=== PATIENT | female | born 1960 | race Caucasian/White ===

== ENCOUNTER 2016-11-18 07:07 | Outpatient (CLI) | payer OTHER ==
[2016-11-18 11:59] LABS: BASOPHILS # (AUTO) 0.1 10^3/uL (0.0-0.1); BASOPHILS % (AUTO) 0.9 %; EOSINOPHILS # (AUTO) 0.2 10^3/uL (0.0-0.7); EOSINOPHILS % (AUTO) 2.9 %; HCT - HEMATOCRIT 42.3 % (37.0-47.0); HGB - HEMOGLOBIN 14.3 g/dL (12.0-16.0); LYMPHOCYTES # (AUTO) 1.7 10^3/uL (1.5-3.5); LYMPHOCYTES % (AUTO) 20.9 %; MEAN CORPUSCULAR HEMOGLOBIN 30.8 pg (27.0-31.0); MEAN CORPUSCULAR HGB CONC 33.8 g/dL (32.0-36.0); MEAN CORPUSCULAR VOLUME 91.2 fL (81.0-99.0); MEAN PLATELET VOLUME 8.8 fL (7.9-10.8); MONOCYTES # (AUTO) 0.6 10^3/uL (0.0-1.0); MONOCYTES % (AUTO) 7.8 %; NEUTROPHILS # (AUTO) 5.6 10^3/uL (1.5-6.6); NEUTROPHILS % (AUTO) 67.5 %; RED BLOOD COUNT 4.64 10^6/uL (4.20-5.40); RED CELL DISTRIBUTION WIDTH 13.5 % (12.0-15.0); UNCORRECTED WHITE BLOOD COUNT 8.3 x10^3/uL; WHITE BLOOD COUNT 8.3 x10^3/uL (4.8-10.8)
[2016-11-18 12:14] LABS: ALBUMIN/GLOBULIN RATIO 1.3 (1.0-2.2); BILIRUBIN,TOTAL 0.5 mg/dL (0.2-1.0); BUN - BLOOD UREA NITROGEN 12 mg/dL (6-20); CARBON DIOXIDE - CO2 23 mmol/L (21-32); CHLORIDE 106 mmol/L (101-111); CHOL/HDL RATIO 2.5 (<4.4); CHOLESTEROL 183 mg/dL; CREATININE 0.7 mg/dL (0.4-1.0); GFR - MDRD 87 (>89); GLUCOSE 80 mg/dL (70-100); HDL CHOLESTEROL 73 mg/dL; LDL/HDL RATIO 1.2 (<4.4); POTASSIUM 3.9 mmol/L (3.5-5.0); SODIUM 140 mmol/L (135-145); TOTAL PROTEIN 7.6 g/dL (6.7-8.2); TRIGLYCERIDES 116 mg/dL; VLDL CHOLESTEROL 23 mg/dL
[2016-11-18 12:44] LABS: THYROID STIMULATING HORMONE 1.07 uIU/mL (0.34-5.60)
== END 2016-11-18 07:08 | disposition home or self-care (01) ==
LOC: LAB.F 07:07
PROVIDERS: ATTEND Physician Assistant
DX: Z00.00 Encounter for general adult medical examination without abnormal findings (principal)
CPT/HCPCS: 36415; 80053; 80061; 84439; 84443; 85025

== ENCOUNTER 2016-12-12 09:50 | Outpatient (CLI) | payer OTHER | END 2016-12-12 09:51 | disposition home or self-care (01) | LOC: LAB.S 09:50 | PROVIDERS: ATTEND Physician Assistant | DX: E55.9 Vitamin D deficiency, unspecified (principal) | CPT/HCPCS: 36415; 82306 ==

== ENCOUNTER 2017-07-17 15:28 | Outpatient (CLI) | payer OTHER | END 2017-07-17 15:29 | disposition home or self-care (01) | LOC: RT.S 15:28 | PROVIDERS: ATTEND Physician Assistant | DX: R03.0 Elevated blood-pressure reading, without diagnosis of hypertension (principal); R00.0 Tachycardia, unspecified | CPT/HCPCS: 93005 ==

== ENCOUNTER 2017-07-21 07:04 | Outpatient (CLI) | payer OTHER ==
[2017-07-21 10:22] LABS: BASOPHILS % (AUTO) 0.7 %; EOSINOPHILS # (AUTO) 0.2 10^3/uL (0.0-0.7); EOSINOPHILS % (AUTO) 2.9 %; HGB - HEMOGLOBIN 14.2 g/dL (12.0-16.0); LYMPHOCYTES % (AUTO) 30.5 %; MEAN CORPUSCULAR HEMOGLOBIN 30.4 pg (27.0-31.0); MEAN CORPUSCULAR HGB CONC 34.2 g/dL (32.0-36.0); MEAN CORPUSCULAR VOLUME 88.7 fL (81.0-99.0); MEAN PLATELET VOLUME 8.4 fL (7.9-10.8); MONOCYTES # (AUTO) 0.8 10^3/uL (0.0-1.0); MONOCYTES % (AUTO) 12.2 %; NEUTROPHILS # (AUTO) 3.5 10^3/uL (1.5-6.6); NEUTROPHILS % (AUTO) 53.7 %; PLT - PLATELET COUNT 383 10^3/uL (130-450); RED BLOOD COUNT 4.66 10^6/uL (4.20-5.40); RED CELL DISTRIBUTION WIDTH 13.2 % (12.0-15.0); WHITE BLOOD COUNT 6.6 x10^3/uL (4.8-10.8)
[2017-07-21 10:35] LABS: BUN - BLOOD UREA NITROGEN 11 mg/dL (6-20); CALCIUM 8.6 mg/dL (8.5-10.3); CARBON DIOXIDE - CO2 22 mmol/L (21-32); CHLORIDE 104 mmol/L (101-111); CHOL/HDL RATIO 3.7 (<4.4); CHOLESTEROL 235 mg/dL; CREATININE 0.7 mg/dL (0.4-1.0); GFR - MDRD 87 (>89); GLUCOSE 80 mg/dL (70-100); HDL CHOLESTEROL 63 mg/dL; LDL CHOLESTEROL,CALCULATED 147 mg/dL; LDL/HDL RATIO 2.3 (<4.4); SODIUM 136 mmol/L (135-145); VLDL CHOLESTEROL 25 mg/dL
[2017-07-21 10:47] LABS: THYROID STIMULATING HORMONE 0.7 uIU/mL (0.34-5.60)
[2017-07-21 10:49] LABS: FREE T4 (FREE THYROXINE) 0.91 ng/dL (0.58-1.64)
== END 2017-07-21 07:05 | disposition home or self-care (01) ==
LOC: LAB.F 07:04
PROVIDERS: ATTEND Physician Assistant
DX: R03.0 Elevated blood-pressure reading, without diagnosis of hypertension (principal)
CPT/HCPCS: 36415; 80048; 80061; 82306; 83721; 84439; 84443; 85025

== ENCOUNTER 2017-12-04 07:15 | Outpatient (CLI) | payer OTHER ==
[2017-12-04 11:20] LABS: BILIRUBIN,URINE NEGATIVE (NEGATIVE); GLUCOSE, URINE (UA) NEGATIVE (NEGATIVE); KETONES,URINE (UA) NEGATIVE (NEGATIVE); LEUKOCYTE ESTERASE, URINE NEGATIVE (NEGATIVE); NITRITE,URINE NEGATIVE (NEGATIVE); OCCULT BLOOD,URINE NEGATIVE (NEGATIVE); PROTEIN,URINE NEGATIVE (NEGATIVE); UROBILINOGEN,URINE 0.2 (NORMAL) E.U./dL (NORMAL)
[2017-12-04 11:25] LABS: BASOPHILS # (AUTO) 0.1 10^3/uL (0.0-0.1); BASOPHILS % (AUTO) 0.7 %; EOSINOPHILS # (AUTO) 0.2 10^3/uL (0.0-0.7); EOSINOPHILS % (AUTO) 2.6 %; LYMPHOCYTES # (AUTO) 1.6 10^3/uL (1.5-3.5); LYMPHOCYTES % (AUTO) 19.9 %; MEAN CORPUSCULAR HEMOGLOBIN 31.6 pg (27.0-31.0); MEAN CORPUSCULAR HGB CONC 33.7 g/dL (32.0-36.0); MEAN CORPUSCULAR VOLUME 93.7 fL (81.0-99.0); MEAN PLATELET VOLUME 9.1 fL (7.9-10.8); MONOCYTES # (AUTO) 0.6 10^3/uL (0.0-1.0); MONOCYTES % (AUTO) 8.2 %; NEUTROPHILS # (AUTO) 5.4 10^3/uL (1.5-6.6); NEUTROPHILS % (AUTO) 68.6 %; PLT - PLATELET COUNT 267 10^3/uL (130-450); RED BLOOD COUNT 4.43 10^6/uL (4.20-5.40); RED CELL DISTRIBUTION WIDTH 13.7 % (12.0-15.0); WHITE BLOOD COUNT 7.8 x10^3/uL (4.8-10.8)
[2017-12-04 11:31] LABS: CLARITY,URINE HAZY (CLEAR)
[2017-12-04 11:39] LABS: ALBUMIN 3.6 g/dL (3.2-5.5); ALBUMIN/GLOBULIN RATIO 1.1 (1.0-2.2); ALKALINE PHOSPHATASE 54 IU/L (42-121); ALT ALANINE AMINOTRANSFERASE 21 IU/L (10-60); AST ASPARTATE AMINOTRANSFERASE 27 IU/L (10-42); BILIRUBIN,TOTAL 0.8 mg/dL (0.2-1.0); BUN - BLOOD UREA NITROGEN 13 mg/dL (6-20); CALCIUM 8.8 mg/dL (8.5-10.3); CARBON DIOXIDE - CO2 22 mmol/L (21-32); CHLORIDE 105 mmol/L (101-111); CHOL/HDL RATIO 3.4 (<4.4); CHOLESTEROL 192 mg/dL; CREATININE 0.8 mg/dL (0.4-1.0); GFR - MDRD 74 (>89); GLUCOSE 86 mg/dL (70-100); HDL CHOLESTEROL 57 mg/dL; LDL CHOLESTEROL,CALCULATED 102 mg/dL; LDL/HDL RATIO 1.8 (<4.4); SODIUM 136 mmol/L (135-145); TOTAL PROTEIN 6.9 g/dL (6.7-8.2); VLDL CHOLESTEROL 33 mg/dL
[2017-12-04 11:45] LABS: THYROID STIMULATING HORMONE 1.46 uIU/mL (0.34-5.60)
[2017-12-04 11:47] LABS: FREE T4 (FREE THYROXINE) 0.75 ng/dL (0.58-1.64)
== END 2017-12-04 07:16 | disposition home or self-care (01) ==
LOC: LAB.F 07:15
PROVIDERS: ATTEND Physician Assistant
DX: Z00.00 Encounter for general adult medical examination without abnormal findings (principal); R94.4 Abnormal results of kidney function studies; E07.9 Disorder of thyroid, unspecified; E78.5 Hyperlipidemia, unspecified; R03.0 Elevated blood-pressure reading, without diagnosis of hypertension
CPT/HCPCS: 36415; 80053; 80061; 81003; 83721; 84439; 84443; 85025

== ENCOUNTER 2018-06-04 20:57 | Emergency (ER) | payer OTHER ==
[2018-06-04] MEDS ORDERED: IOVERSOL 320 100 ML VIAL IVP ONE ×3 (20:58→22:29)
[2018-06-04 21:04] VITALS: BP 142/90
[2018-06-04] MEDS ORDERED: ONDANSETRON 4 MG/2 ML VIAL IVP STA (21:06)
[2018-06-04] MEDS ORDERED: SODIUM CHLORIDE 0.9% 1,000 ML IV STA (21:06)
--- NOTE | 2018-06-04 21:21 | ED Physician Documentation ---
PD HPI ABD PAIN - Stated complaint Stated Complaint: ABDOMINAL PX - Chief complaint Chief Complaint: Abd Pain - History obtained from History obtained from: Patient - History of Present Illness Timing - onset: How many days ago (2) Timing - duration: Days (2) Timing - details: Gradual onset Pain level max: 3 Pain level now: 3 Severity Comments: mild Quality: Cramping Location: RLQ, LLQ Radiation: No: Chest, , Lower back, Left flank, Right flank Improved by: Laying still, BM. No: Eating Worsened by: Eating Associated symptoms: Nausea, Diarrhea. No: Fever, Vomiting Review of Systems Constitutional: reports: Reviewed and negative Eyes: reports: Reviewed and negative Ears: reports: Reviewed and negative Nose: reports: Reviewed and negative Throat: reports: Reviewed and negative Cardiac: reports: Reviewed and negative Respiratory: reports: Reviewed and negative GI: reports: Reviewed and negative : reports: Reviewed and negative Skin: reports: Reviewed and negative Musculoskeletal: reports: Reviewed and negative Neurologic: reports: Reviewed and negative Psychiatric: reports: Reviewed and negative Endocrine: reports: Reviewed and negative Immunocompromised: reports: Reviewed and negative PD PAST MEDICAL HISTORY - Past Medical History Cardiovascular: None Respiratory: None Endocrine/Autoimmune: None GI: None : None HEENT: None Psych: None Musculoskeletal: None Derm: None Other Past Medical History: Reviewed and not pertinent - Past Surgical History Ortho: Arthroscopic surgery /RINK RAT: Mastectomy, Other - Present Medications Home Medications: Ambulatory Orders Medication Instructions Recorded Confirmed valACYclovir [Valtrex] 500 mg PO BID PRN 11/06/12 03/19/18 Norethindrone-Ethinyl Estrad 1 each PO DAILY 01/09/13 03/19/18 [Cyclafem] Cholecalciferol (Vitamin D3) 25,000 unit PO Q7D 04/03/13 03/19/18 [Vitamin D-3] Aspirin [Aspir-Low] 81 mg PO DAILY 03/21/16 03/19/18 Lisinopril 10 mg PO DAILY 03/19/18 03/19/18 Ciprofloxacin HCl [Cipro] 500 mg PO BID #20 tablet 06/04/18 Metronidazole [Flagyl] 500 mg PO TID #30 tablet 06/04/18 - Allergies Allergies/Adverse Reactions: Allergies Allergy/AdvReac Type Severity Reaction Status Date / Time No Known Drug Allergies Allergy Verified 01/28/19 21:05 - Living Situation Living Situation: reports: Alone Living Arrangement: reports: At home - Social History Does the pt smoke?: Yes Smoking Status: Former smoker Does the pt drink ETOH?: Yes - Family History Family history: reports: Other (Reviewed and not pertinent) - Immunizations Immunizations are current?: Yes PD ED PE NORMAL - Vitals Vital signs reviewed: Yes - General General: Alert and oriented X 3, No acute distress - HEENT HEENT: PERRL - Neck Neck: Supple, no meningeal sign - Cardiac Cardiac: RRR, No murmur - Respiratory Respiratory: Clear bilaterally - Abdomen Abdomen: Normal bowel sounds, Soft, Non distended, Other (Generalized abdominal tenderness with no guarding or rebound.) - Derm Derm: Warm and dry - Extremities Extremities: No deformity - Neuro Neuro: Alert and oriented X 3 - Psych Psych: Normal mood, Normal affect Results - Vitals Vitals: Vital Signs - 24 hr 06/04/18 20:59 Temperature 36.4 C L Heart Rate 115 H Respiratory 18 Rate Blood Pressure 142/90 H O2 Saturation 97 Oxygen O2 Source Room air - EKG (time done) 2113 Rate: Rate (enter#) (100), Tachy Rhythm: Sinus tachycardia Star: Normal Intervals: Normal MT QRS: Normal Ischemia: Normal ST segments. No: T wave inversion Other comments: Other comments (Left bundle branch block, Negative sgarbossa criteria) - Labs Labs: Laboratory Tests 06/04/18 06/04/18 06/04/18 21:16 21:16 21:16 WBC 18.4 H RBC 4.65 Hgb 14.4 Hct 43.0 MCV 92.5 MCH 30.9 MCHC 33.4 RDW 13.5 Plt Count 299 MPV 8.6 Neut # (Auto) 15.9 H Lymph # (Auto) 1.1 L [place] # (Auto) 1.2 H Eos # (Auto) 0.2 Baso # (Auto) 0.0 Absolute Nucleated RBC 0.02 Nucleated RBC % 0.1 Sodium 135 Potassium 4.2 Chloride 102 Carbon Dioxide 22 Anion Gap 11.0 BUN 26 H Creatinine 1.2 H Estimated GFR (MDRD) 47 L Glucose 101 H Calcium 8.7 Total Bilirubin 0.7 AST 21 ALT 20 Alkaline Phosphatase 55 Troponin I < 0.04 Total Protein 7.3 Albumin 4.2 Globulin 3.1 Albumin/Globulin Ratio 1.4 Lipase 37 - Rads (name of study) CT Abd Pelvis Radiology: Final report received (Enteritis, adrenal gland nodule) PD MEDICAL DECISION MAKING - ED course Complexity details: reviewed results, re-evaluated patient, considered differential, d/w patient ED course: 57-year-old female with abdominal pain and diarrhea. CT scan shows enteritis. Discharged on Cipro Flagyl. Departure - Departure Disposition: Home, Self Care Clinical Impression: Enteritis Condition: Good Instructions: ED Food Poison Or Gastroenteritis Follow-Up: Ros Shrestha ARNP [Primary Care Provider] - Prescriptions: Ciprofloxacin HCl [Cipro] 500 mg PO BID #20 tablet Metronidazole [Flagyl] 500 mg PO TID #30 tablet Comments: Take antibiotics as prescribed. Follow-up with PCP within 24 hours to ensure symptoms are improving. Return with worsening symptoms.
[2018-06-04 21:28] LABS: BASOPHILS % (AUTO) 0.3 %; EOSINOPHILS # (AUTO) 0.2 10^3/uL (0.0-0.7); EOSINOPHILS % (AUTO) 0.9 %; HGB - HEMOGLOBIN 14.4 g/dL (12.0-16.0); LYMPHOCYTES # (AUTO) 1.1 10^3/uL (1.5-3.5); LYMPHOCYTES % (AUTO) 6.1 %; MEAN CORPUSCULAR HEMOGLOBIN 30.9 pg (27.0-31.0); MEAN CORPUSCULAR HGB CONC 33.4 g/dL (32.0-36.0); MEAN CORPUSCULAR VOLUME 92.5 fL (81.0-99.0); MEAN PLATELET VOLUME 8.6 fL (7.9-10.8); MONOCYTES # (AUTO) 1.2 10^3/uL (0.0-1.0); MONOCYTES % (AUTO) 6.3 %; NEUTROPHILS # (AUTO) 15.9 10^3/uL (1.5-6.6); NEUTROPHILS % (AUTO) 86.4 %; PLT - PLATELET COUNT 299 10^3/uL (130-450); RED BLOOD COUNT 4.65 10^6/uL (4.20-5.40); RED CELL DISTRIBUTION WIDTH 13.5 % (12.0-15.0); WHITE BLOOD COUNT 18.4 x10^3/uL (4.8-10.8)
[2018-06-04 21:37] LABS: ALBUMIN 4.2 g/dL (3.2-5.5); ALBUMIN/GLOBULIN RATIO 1.4 (1.0-2.2); BILIRUBIN,TOTAL 0.7 mg/dL (0.2-1.0); CALCIUM 8.7 mg/dL (8.5-10.3); CREATININE 1.2 mg/dL (0.4-1.0); TOTAL PROTEIN 7.3 g/dL (6.7-8.2)
--- NOTE | 2018-06-04 23:04 | CT Report ---
Reason: Pain Procedure Date: 06/04/2018 Accession Number: [id number] / [id number] Procedure: CT - Abdomen/Pelvis W/ CPT Code: FULL RESULT: EXAM: CT ABDOMEN AND PELVIS EXAM DATE: 06/04/2018 10:32 PM. CLINICAL HISTORY: Pain. COMPARISONS: ABDOMEN/PELVIS W/ 03/25/2016 8:50 AM. TECHNIQUE: Routine helical CT imaging was performed through the abdomen and pelvis. IV contrast: 80 mL Optiray 320. Enteric contrast: No. Reconstructions: Coronal and sagittal. In accordance with CT protocol optimization, one or more of the following dose reduction techniques were utilized for this exam: automated exposure control, adjustment of mA and/or KV based on patient size, or use of iterative reconstructive technique. FINDINGS: Lung Bases: Unremarkable. Liver: Normal. No masses. Gallbladder/Bile Ducts: Unremarkable. Spleen: Normal. Pancreas: Normal. Adrenal Glands: There is a 1.5 cm left adrenal gland nodule with an attenuation value of 37 HU. This previously measured 1.3 cm. The right adrenal gland is normal. Kidneys: Normal. No masses or hydronephrosis. Peritoneal Cavity/Bowel: Circumferential mural thickening of the mid to distal small bowel. There is mesenteric edema and mild pelvic ascites. No bowel obstruction. No pneumoperitoneum. There is no evidence of diverticulitis or appendicitis. The appendix is well-visualized and normal. Pelvic Organs: Small uterine fibroids noted. The urinary bladder is unremarkable. Vasculature: No aneurysms or other significant abnormality. Bones: No significant abnormality. Other: None. IMPRESSION: 1. Several thickened mid to distal small bowel loops with mild mesenteric edema and ascites. Findings suggest inflammatory bowel disease versus enteritis. 2. No pneumoperitoneum. 3. Slight interval increase in size of left adrenal gland nodule most likely representing a benign adenoma. RADIA
[2018-06-04] MEDS ORDERED: CIPROFLOXACIN 250 MG TABLET PO STA (23:07)
[2018-06-04] MEDS ORDERED: metroNIDAZOLE 250 MG TABLET PO STA (23:07)
== END 2018-06-04 23:23 | disposition home or self-care (01) ==
LOC: ED 20:57
DX: K52.9 Noninfective gastroenteritis and colitis, unspecified (principal); R00.0 Tachycardia, unspecified; I44.7 Left bundle-branch block, unspecified; Z87.891 Personal history of nicotine dependence
CPT/HCPCS: 36415; 74177; 80053; 83690; 84484; 85025; 93005; 96374; 99283; A9270; Q9967

== ENCOUNTER 2019-04-09 07:14 | Outpatient (CLI) | payer OTHER ==
--- NOTE | 2019-04-09 15:49 | CT Report ---
Reason: RT BREAST CA Procedure Date: 04/09/2019 Accession Number: [id number] / [id number] Procedure: CT - CHEST WO CPT Code: Final Report FULL RESULT: EXAM: CT CHEST EXAM DATE: 04/09/2019 07:26 AM. CLINICAL HISTORY: Right breast cancer. COMPARISONS: CT ABDOMEN/PELVIS CT CHEST ANGIO 02/06/2014. TECHNIQUE: Routine helical CT imaging was performed through the chest. IV contrast: None. Reconstructions: Coronal and sagittal. In accordance with CT protocol optimization, one or more of the following dose reduction techniques were utilized for this exam: automated exposure control, adjustment of mA and/or KV based on patient size, or use of iterative reconstructive technique. FINDINGS: Lungs/Pleura: Minimal basilar atelectasis. No nodules, bronchial thickening, consolidation, or edema. Pulmonary vasculature is normal. No pleural effusion. No pneumothorax. Mediastinum: No adenopathy or masses. The heart and great vessels are normal. Bones: Mildly degenerative changes. No lytic or blastic destructive lesions. Visualized Abdomen: Stable left adrenal low-attenuation nodule. Other: Post surgical changes in the right breast and axilla. Small hiatal hernia. IMPRESSION: No evidence for metastatic disease. RADIA
== END 2019-04-09 07:15 | disposition home or self-care (01) ==
LOC: DI 07:14
PROVIDERS: ATTEND Internal Medicine Hematology & Oncology
DX: C50.911 Malignant neoplasm of unspecified site of right female breast (principal)
CPT/HCPCS: 71250

== ENCOUNTER 2019-11-22 11:43 | Emergency (ER) | payer OTHER ==
--- NOTE | 2019-11-22 12:35 | XRAY Report ---
PROCEDURE: Ankle 3 View RT INDICATIONS: Trauma TECHNIQUE: 3 views of the ankle were acquired. COMPARISON: None FINDINGS: Bones: No fractures or dislocations. Ankle mortise is normally aligned. No suspicious bony lesions . Soft tissues: Mild lateral malleolar soft tissue edema. Achilles tendon appears normal. IMPRESSION: No visualized acute fracture or dislocation. However, occult injury cannot be excluded. Recommend short interval imaging follow-up in 7-10 days as clinically indicated for additional evalua tion. Reviewed by: Gabriela Ramachandran MD on 11/22/2019 12:34 PM PDT Approved by: Gabriela Ramachandran MD on 11/22/2019 12:34 PM PDT Station ID: [id number]
--- NOTE | 2019-11-22 12:51 | ED Physician Documentation ---
PD HPI LOWER EXT INJURY - Stated complaint Stated Complaint: RT ANKLE PX - Chief complaint Chief Complaint: Ext Problem - History obtained from History obtained from: Patient - History of Present Illness PD HPI LOW EXT INJURY LOCATION: Right, Ankle Type of injury: Twist (Twisted walking down the stairs) Where injury occurred: Home Timing - onset: Yesterday Pain level max: 6 Pain level now: 3 Improved by: Rest, Ice, Immobilization Worsened by: Moving, Palpating Associated symptoms: Swelling (Right lateral malleolus). No: Weakness, Tingling Contributing factors: No: Anticoagulated Similar symptoms before: Has not had sx before - Additional information Additional information: 59-year-old female states that she rolled her ankle yesterday at home, increasing pain today. Difficulty walking. Using Tylenol for pain. No head, neck, back pain. No numbness or tingling. 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, Other - Present Medications Home Medications: Ambulatory Orders Medication Instructions Recorded Confirmed valACYclovir [Valtrex] 500 mg PO BID PRN 11/06/12 04/29/19 Cholecalciferol (Vitamin D3) 25,000 unit PO Q7D 04/03/13 04/29/19 [Vitamin D-3] Aspirin [Aspir-Low] 81 mg PO DAILY 03/21/16 04/29/19 Ciprofloxacin HCl [Cipro] 500 mg PO BID #20 tablet 06/04/18 04/29/19 metroNIDAZOLE [Flagyl] 500 mg PO TID #30 tablet 06/04/18 04/29/19 Levonorgestrel-Ethin Estradiol 1 tab PO DAILY 04/29/19 04/29/19 [Afirmelle-28 Tablet] Losartan Potassium 25 mg PO DAILY 04/29/19 04/29/19 Neomycin/Poly/Dex Ophth Drops 1 drops EACHEYE Q6HR 04/29/19 04/29/19 [Maxitrol Ophth Drops] - Allergies Allergies/Adverse Reactions: Allergies Allergy/AdvReac Type Severity Reaction Status Date / Time No Known Drug Allergies Allergy Verified 11/22/19 11:51 - Social History Does the pt smoke?: Yes Smoking Status: Former smoker Does the pt drink ETOH?: Yes - Immunizations Immunizations are current?: Yes PD ED PE NORMAL - Vitals Vital signs reviewed: Yes - General General: Alert and oriented X 3, No acute distress - HEENT HEENT: Moist mucous membranes - Derm Derm: Warm and dry - Extremities Extremities: Other (Mild right ankle swelling over the lateral malleolus. Mild tenderness at this spot as well. No tenderness over the remainder of the foot and/or ankle. No proximal tenderness over the tibia and fibula. Neurovascular intact.) - Neuro Neuro: Alert and oriented X 3 - Psych Psych: Normal mood, Normal affect Results - Vitals Vitals: Vital Signs - 24 hr 11/22/19 11:52 Temperature 36.9 C Heart Rate 76 Respiratory 16 Rate Blood Pressure 142/77 H O2 Saturation 98 Oxygen O2 Source Room air - Rads (name of study) Right ankle x-ray Radiology: Prelim report reviewed, EMP read contemporaneously, See rad report (No acute abnormality) PD MEDICAL DECISION MAKING - ED course Complexity details: reviewed results, considered differential, d/w patient ED course: 59-year-old female with a right ankle sprain. No evidence of fracture. Counseled regarding possible occult fractures. Placed in an ankle splint for comfort. Declines crutches. Patient counseled regarding signs and symptoms for which I believe and urgent re-evaluation would be necessary. Patient with good understanding of and agreement to plan and is comfortable going home at this time This document was made in part using voice recognition software. While efforts are made to proofread this document, sound alike and grammatical errors may occur. Departure - Departure Disposition: 01 Home, Self Care Clinical Impression: Right ankle sprain Qualifiers: Encounter type: initial encounter Involved ligament of ankle: unspecified ligament Qualified Code(s): S93.401A - Sprain of unspecified ligament of right ankle, initial encounter Condition: Good Instructions: ED Sprain Ankle Follow-Up: Sam Castaneda MD [Primary Care Provider] - Within 1 week Comments: Follow-up with your doctor in 1 week for recheck. Return if you worsen. You can use motrin or tylenol as needed for pain. Wear the splint as needed for comfort.
[2019-11-22 13:03] VITALS: BP 152/82
== END 2019-11-22 13:04 | disposition home or self-care (01) ==
LOC: ED 11:43
DX: S93.401A Sprain of unspecified ligament of right ankle, initial encounter (principal); X50.1XXA Overexertion from prolonged static or awkward postures, initial encounter; Y92.009 Unspecified place in unspecified non-institutional (private) residence as the place of occurrence of the external cause; Z87.891 Personal history of nicotine dependence; Z79.82 Long term (current) use of aspirin
CPT/HCPCS: 99283; 99284

== ENCOUNTER 2019-12-21 07:14 | Outpatient (CLI) | payer OTHER ==
--- NOTE | 2019-12-23 08:43 | MRI Report ---
PROCEDURE: Shoulder LT W/O INDICATIONS: PAIN IN LT SHOULDER TECHNIQUE: Noncontrast oblique coronal T2 fast spin echo with fat saturation, oblique sagittal T1 spin echo and T2 fast spin echo with fat saturation, axial T1 spin echo and T2 fast spin echo with fat saturation t hrough the shoulder. COMPARISON: None. FINDINGS: Image quality: Excellent. Rotator cuff: Supraspinatus tendinopathy, with bursal surface fraying. There is minimal infraspinatus tendinopathy. Teres minor appears intact. Mild subscapularis tendinopathy without discrete tear. No definite atrop hy of the rotator cuff muscles. Minimal fatty infiltration of the infraspinatus muscle. Bones and bursae: No bone marrow contusions or fractures. Tiny degenerative cystic change in the posterior aspect of t he greater tuberosity. Moderate acromioclavicular and glenohumeral joint degeneration. The acromion demonstrates conventional anatomy, without an os acromiale. No definite subacromial/subdeltoid bursal fluid is present. Capsule and soft tissues: Labrum: Age-indeterminate posterior labral tear is seen. There is also marked thickening and heteroge neous signal change of the anteroinferior labrum in keeping with chronic tear with subsequent fibrosi s/scarring. A possible ill-defined 5 mm para labral cyst seen at the anterior segment. There is adjac ent thickening of the anterior band of the inferior glenohumeral ligament and poor visualization of t he axillary pouch. The long head of the biceps tendon demonstrates normal location and morphology. The rotator interval appears normal, without fibrosis. The coracohumeral ligament is normal in thickness. IMPRESSION: Chronic appearing anteroinferior labral tear with subsequent fibrosis/scarring, and paralabral cyst s een adjacent to the anterior segment. Adjacent thickening of the inferior glenohumeral ligament anter ior band, and diminutive appearance of the axillary pouch. These findings raise the possibility of ad hesive capsulitis although this remains a clinical diagnosis. Of note, no definite obliteration of th e subcoracoid fat or thickening of the coracohumeral ligament. Please correlate with exam findings. Supraspinatus and infraspinatus tendinopathy. Low-grade bursal surface fraying of the supraspinatus t endon Age-indeterminate posterior labral tear, probably chronic. Mild subscapularis tendinopathy Reviewed by: Kevin Sarabia MD on 12/23/2019 8:41 AM PDT Approved by: Kevin Sarabia MD on 12/23/2019 8:41 AM PDT Station ID: [id number]
== END 2019-12-21 07:15 | disposition home or self-care (01) ==
LOC: DI 07:14
PROVIDERS: ATTEND Nurse Practitioner Family
DX: M75.92 Shoulder lesion, unspecified, left shoulder (principal)

== ENCOUNTER 2020-03-20 08:20 | Outpatient (CLI) | payer OTHER ==
[~2020-03-20 08:20] MED LIST: BUFFERED LIDOCAINE 10 ML SYRINGE ONE; BUPIVACAINE 0.5% PF 10 ML VIAL ONE; ROPIVACAINE 0.5% PF 20 ML AMPULE ONE; TRIAMCINOLONE 40 MG/ML VIAL ONE
[2020-03-20] MEDS ORDERED: BUFFERED LIDOCAINE 10 ML SYRINGE IU ONE ×2 (09:29)
[2020-03-20] MEDS ORDERED: TRIAMCINOLONE 40 MG/ML VIAL IM ONE (09:30)
[2020-03-20] MEDS ORDERED: ROPIVACAINE 0.5% PF 20 ML AMPULE EP ONE (09:32)
--- NOTE | 2020-03-20 13:56 | Ultrasound Report ---
PROCEDURE: Injection Single Tendon INDICATIONS: ROTATOR CUFF TENDONITIS, IMPINGEMENT OF LT SH TECHNIQUE: The indications, alternatives, benefits, risks, and complications of the procedure were explained to the patient. Written informed consent was obtained and placed in the chart. The patient was placed in an appropriate position on the fluoroscopy table, and a site was chosen for percutaneous access un mayuri ultrasound guidance. Local anesthetic was administered using approximately 2 cc of 1% lidocaine solution. A hypodermic or spinal needle was then used to access the symptomatic tendon sheath. The n eedle tip was confirmed to be within the sheath of the left long head of the biceps tendon by real ti me ultrasound imaging, followed by steroid administration. The needle was then withdrawn, and a band age applied to the puncture site. FINDINGS: Site injected: Long head of the biceps tendon sheath Medications injected: 1 mL of 40 mg/mL Kenalog and 3 0.5% Ropivacaine mixture. Patient's pain before injection: 10 of 10. Patient's pain after injection: 8 of 10. Complications: None. IMPRESSION: Successful ultrasound guided administration of steroid and anaesthetic solution into the sheath of th e left long head of the biceps tendon. Reviewed by: lAly Isbell MD, PhD on 03/20/2020 1:55 PM PST Approved by: Ally Isbell MD, PhD on 03/20/2020 1:55 PM PST Station ID: [id number]
== END 2020-03-20 08:21 | disposition home or self-care (01) ==
LOC: DI 08:20
PROVIDERS: ATTEND Orthopaedic Surgery
DX: M65.819 Other synovitis and tenosynovitis, unspecified shoulder (principal); M75.42 Impingement syndrome of left shoulder
CPT/HCPCS: 20550

== ENCOUNTER 2020-04-14 09:23 | Outpatient (CLI) | payer OTHER ==
--- NOTE | 2020-04-14 16:59 | CT Report ---
PROCEDURE: CHEST WO INDICATIONS: RT BREAST CA TECHNIQUE: Noncontrast 5 mm thick sections acquired from the pulmonary apices to the posterior costophrenic angl es. 7 mm thick coronal and sagittal MIP reformats were then acquired. For radiation dose reduction, the following was used: automated exposure control, adjustment of mA and/or kV according to patient size. COMPARISON: 04/09/2019 FINDINGS: Image quality: Excellent. Lungs and pleura: No acute air space opacities. No pleural effusions or pneumothorax. Central and peripheral airways are patent and normal in caliber. Mediastinum: Heart size is normal. No pericardial effusion. No mediastinal adenopathy by size crit eria. Thoracic aorta and central pulmonary arteries are normal in size. Esophagus is normal in edward guerrero. No hiatal hernia. Bones and chest wall: Prior bilateral mastectomy with reconstruction. No suspicious bony lesions. N o vertebral body compression fractures. No axillary or supraclavicular adenopathy by size criteria. The thyroid is normal in size. Abdomen: Low-density left adrenal nodule, stable size. Visualized upper abdominal solid organs and b owel loops appear otherwise normal in the absence of contrast. IMPRESSION: 1. No evidence of metastatic disease in the chest. 2. Surgical changes of prior bilateral mastectomy. 3. Stable small left adrenal nodule, diagnostic of a benign adenoma. Reviewed by: Nan Ibarra MD on 04/14/2020 4:57 PM PST Approved by: Nan Ibarra MD on 04/14/2020 4:57 PM PST Station ID: [id number]
== END 2020-04-14 09:24 | disposition home or self-care (01) ==
LOC: DI 09:23
PROVIDERS: ATTEND Internal Medicine Hematology & Oncology
DX: C50.911 Malignant neoplasm of unspecified site of right female breast (principal); D35.02 Benign neoplasm of left adrenal gland
CPT/HCPCS: 71250

== ENCOUNTER 2021-04-12 17:34 | Outpatient (CLI) | payer OTHER ==
--- NOTE | 2021-04-13 10:47 | CT Report ---
PROCEDURE: CHEST WO INDICATIONS: HX OF BREAST CA TECHNIQUE: Noncontrast 1mm axial images were acquired from the pulmonary apices to the posterior costophrenic an gles. Axial 5 mm soft tissue kernel reconstructions were performed as well as 8 mm axial MIP and cor onal and sagittal 5 mm reformations. For radiation dose reduction, the following was used: automate d exposure control, adjustment of mA and/or kV according to patient size. COMPARISON: 04/14/2020 FINDINGS: Image quality: Excellent. Lungs and pleura: No acute air space opacities. No pleural effusions or pneumothorax. Central and peripheral airways are patent and normal in caliber. Mediastinum: Heart size is normal. No pericardial effusion. LAD coronary artery calcifications. No mediastinal adenopathy by size criteria. Thoracic aorta and central pulmonary arteries are normal in size. Esophagus is normal in caliber. No hiatal hernia. Bones and chest wall: No suspicious bony lesions. No vertebral body compression fractures. No axil haroldo or supraclavicular adenopathy by size criteria. The thyroid is normal in size and there are no incidental findings. Surgical absence of both breasts. Right axillary node resection clips. Abdomen: Visualized upper abdominal solid organs and bowel loops appear normal in the absence of con trast. IMPRESSION: 1. No evidence of metastatic disease in the chest. 2. Evidence of coronary artery disease. CLINICAL RECOMMENDATION STATEMENTS: In patients <35 years with an ITN detected on CT, MRI, or extrathyroidal ultrasound, the Committee re commends further evaluation with dedicated thyroid ultrasound if the nodule is "e1 cm and has no susp icious imaging features, and if the patient has normal life expectancy. In patients "e35 years with an ITN detected on CT, MRI, or extrathyroidal ultrasound, the Committee r ecommends further evaluation with dedicated thyroid ultrasound if the nodule is "e1.5 cm and has no s uspicious imaging features, and if the patient has normal life expectancy. (ACR, 2014) Reviewed by: Maxwell Xie MD on 04/13/2021 10:46 AM PST Approved by: Maxwell Xie MD on 04/13/2021 10:46 AM PST Station ID: [id number]
== END 2021-04-12 17:35 | disposition home or self-care (01) ==
LOC: DI 17:34
PROVIDERS: ATTEND Internal Medicine Hematology & Oncology
DX: Z08 Encounter for follow-up examination after completed treatment for malignant neoplasm (principal); I25.10 Atherosclerotic heart disease of native coronary artery without angina pectoris; Z85.3 Personal history of malignant neoplasm of breast